=== PATIENT | female | born 1990 | race Caucasian/White ===

== ENCOUNTER 2019-05-09 22:49 | Inpatient (IN) | payer OTHER, SELFPAY ==
--- NOTE | 2019-05-10 00:21 | HPE_ITS ---
History of Present Illness Deisy is at 39 5/7 in active labor. Ctx started ~3 am - on and off over the day - more consistent and intense this evening. Initial exam here 4 cm/80% @ 10:30 pm. No ANDERSON, n/v, abd pain, ROM, visual issues. Good fmvt today. Good po intake and clear UO. labs per flow sheet: A pos, neg AB screen, rubella immune, hep B and H IV neg. Sono c/w LMP Mat surgical hx: Lap abigail 2013 Esophageal manometry 2011 Meds: Ranitidine 150mg Vit D PN vits Allerg: NKDA Husb = Reynaldo No cigs, no etoh, neg UDS First labor - ~18 hrs, post dates induction, Nitrous/Tub - 7# 13 oz boy O: Comfortable between ctx, alert Vitals per flow sheet up walking lungs - clear cv s- reg, no murmur abd - soft with firm ut during ctx - mod q 4-6 NST - 150 baseline, mod variability, no decels - CAt 1 cvx - 5/80%/-1 station, bulging bag, vtx A: Active labor - good cervical change in past ~2 hrs Maternal and wellbeing Excellent support from Reynaldo - offer tub and encourage ambulation Expect S. Generoksana [facility] Social History Smoking/Tobacco Use Status: Never Drug use: Never Meds Home Medications and Allergies Home Medications Medication Instructions Recorded Confirmed Type PNV cmb#95-ferrous fumarate-FA 1 ea PO DAILY AM 03/21/16 03/21/16 History [ Caplet] Allergies Allergy/AdvReac Type Severity Reaction Status Date / Time No Known Allergies Allergy Unverified 03/21/16 20:12
[2019-05-10] MEDS: Ibuprofen 600 MG TAB PO ×3 (08:51→21:05)
[2019-05-10] MEDS: Acetaminophen 325 MG TAB 650 MG PO ×2 (11:31→17:28)
[2019-05-11 06:45] LABS: HCT 38.3 % (36.0-46.0); HGB 12.9 g/dL (12.0-15.5); Mean Corp. HGB Concentration 33.7 g/dL (32.0-36.0); Mean Corpuscular Hemoglobin 30.8 pg (27.0-33.0); Mean Corpuscular Volume 91.4 fL (80-95); Platelet Count 244 x1000/uL (130-400); RBC 4.19 m/cumm (4.00-5.20); RBC Distribution Width 13.8 % (11.7-14.6); White Blood Cell Count 8.48 k/cumm (4.4-10.8)
--- NOTE | 2019-05-11 09:00 | HPE_ITS ---
History of Present Illness Discharge Summary Excellent pp progress - doing all self care FP needs addressed - condoms will cont PN vits and PRN H2 elaina fundus firm and 2 below umb scant lochia no pedal edema vitals are good ASS: Routine PP course S/P P: Home today and f/u in [place] 8:45 Wed Call or seek care sooner if questions or problems Héctor [facility] Social History Smoking/Tobacco Use Status: Never Drug use: Never Meds Home Medications and Allergies Home Medications Medication Instructions Recorded Confirmed Type PNV cmb#95-ferrous fumarate-FA 1 ea PO DAILY AM 03/21/16 03/21/16 History [ Caplet] ranitidine HCl 150 mg PO DAILY 05/10/19 05/10/19 History Allergies Allergy/AdvReac Type Severity Reaction Status Date / Time No Known Allergies Allergy Unverified 03/21/16 20:12 Results Labs Result diagrams: 05/11/19 06:17 Labs: Laboratory Results - last 24 hr 05/11/19 06:17 WBC 8.48 RBC 4.19 Hgb 12.9 Hct 38.3 MCV 91.4 MCH 30.8 MCHC 33.7 RDW 13.8 Plt Count 244 MPV 10.0
[2019-05-11] MEDS: Ibuprofen 600 MG TAB PO (10:49)
== END 2019-05-11 16:20 | disposition home or self-care (01) | DRG 807 ==
PROVIDERS: Admitting Provider Family Medicine; PCP Family Medicine; Visit Provider Family Medicine
DX: O69.1XX0 Labor and delivery complicated by cord around neck, with compression, not applicable or unspecified (principal); Z37.0 Single live birth; Z3A.39 39 weeks gestation of pregnancy; Z30.09 Encounter for other general counseling and advice on contraception
CPT/HCPCS: 36415; 85027; 99223; NC

== ENCOUNTER 2023-05-09 00:10 | Inpatient (IN) | payer OTHER, SELFPAY ==
[2023-05-10] VITALS (15 sets, daily range): BP systolic 112–136; BP diastolic 62–84; PULSE 75–101; RESP 16–20; TEMP 36.7–36.8; O2SAT 97–99
--- NOTE | 2023-05-10 00:11 | W.PM.OBHPL1 ---
Date of service: 05/10/23 Time of Service: 00:12 Assessment and Plan Assessment and plan (1) : Status: Acute Assessment and plan: Deisy is a 32yo at 40.0w with Rh+ RI GBS- HepC-. She has had an uncomplicated . She was seen in clinic this afternoon SVE 1-2cm, membranes stripped. She felt a gush of fluid at 2pm and was having irregular contractions. These got stronger and by 11pm, she could not talk through contractions and they were 5-15min apart. She was shivering. She had continued to leak fluid. She presented to the center and here is 4/50/-3, contractions strong and every 2 minutes. She does not want an epidural at this point and is aware of nitrous. Anticipate . Routine labor care. Qualifiers: Weeks of gestation: 40 weeks Qualified Code(s): Z3A.40 - 40 weeks gestation of OB-HPI Labor/Delivery History of Present Illness Reason for Visit: Labor Chief Complaint: Uterine Contractions; Suspected Rupture of Membranes , Associated Signs and Symptoms of Suspected ROM: grossly ruptured clear fluid. JULIA Calculator Estimated Delivery Date Method Current WG Current Estimate 05/10/23 LMP (Certain) 40w 0d History of Present Expected Delivery Route/Plan Specific Issues/Plan None Assessment: History Reviewed & Current Review of Systems All systems reviewed & are unremarkable except as noted in HPI and below PFSH All Active Problems (Updated 05/10/23 @ 00:20 by Farzad Silva) (Acute) Biliary dyskinesia (Active 10/28/12) Laparoscopic cholecystectomy/OR cholangiogram. Incidental laparoscopic appendectomy per request of patient. (Done by Dr. Enrico Rey 10-28-2012 Social History Smoking/Tobacco Use Status: Never Smoking risk assessment performed?: Yes Drug use: Never History History 6 Para 2 Hx # Term Pregnancies 2 Multiple births 0 Hx # Pregnancies 0 Ectopic pregnancies 0 AB induced 0 Hx Number of Living Children 2 AB spontaneous 3 Meds Allergies and Home Medications Allergies Allergy/AdvReac Type Severity Reaction Status Date / Time No Known Allergies Allergy Unverified 03/21/16 20:12 Home Medications Medication Instructions Recorded Confirmed Type vit no.95-ferrous 1 ea PO DAILY AM 03/21/16 03/21/16 History fumarate 28 mg-folic acid 800 mcg tablet () ranitidine HCl 150 mg tablet 150 mg PO DAILY 05/10/19 05/10/19 History Exam Physical Exam Vital signs: Pulse BP 90 129/81 05/10/23 00:01 05/10/23 00:01 Vital Signs Reviewed: Yes Constitutional Constitutional: moderate distress and average body habitus Detailed Labor and Delivery Exam Dilation: 4 Effacement (%): 50 station: -3 Cervix position: anterior Consistency: soft Camarena Score: Cervical Points Exam 0 1 2 3 Dilation Closed 1-2cm 3-4 cm 5-6cm Effacement 0-30% 40-50% 60-70% 80% Consistency Firm Medium Soft Station -3 -2 -1,0 +1,+2 Position Posterior Mid Anterior CAMARENA Score(Cervical Ripeness Score): 7 Amniotic Membrane Status: Ruptured Rupture Method: Spontaneous Amniotic Fluid: Clear Pooling: Positive Monitor Mode: External Contraction Frequency(min): 2 Contraction Intensity: Moderate Fetus A Heart Rate Baseline: 155 Monitor Accelerations: 15 X 15 Monitor Decelerations: None Variability: Moderate (6-25 BPM) Presentation: Vertex Categories: Category I Date of Membrane Rupture: 05/10/23 Time of Membrane Rupture: 14:00 HEENT Exam HEENT Exam: Normal Respiratory Exam Respiratory Exam: Normal Cardiovascular Exam Cardiovascular Exam: Normal Abdominal Exam Abdominal Exam: Normal Exam Exam: Normal Extremities Exam Extremities Exam: Normal Back/Spine/Pelvis Exam Back Exam: Normal Pelvis Adequate: Yes Skin Exam Skin Exam: Normal Neurological Exam Neurological Exam: Normal Psychiatric Exam Psychiatric Exam: Normal Results Results Group Beta Strep: Negative Blood Type: A+ Rubella Status: Immune Varicella Immunity: Not Tested Risk Assessment Risk for Shoulder Dystocia Increased Risk?: No Risk for Pre-Eclampsia Daily Dose ASA Indicated: No Risk for Post- Hemorrhage At Risk?: No Counseled re: Active Management: Yes Risks Reviewed Risks Reviewed Upon Admission: Yes
[2023-05-10 00:41] LABS: HCT 36.8 % (36.0-46.0); HGB 12.8 g/dL (11.2-15.7); MCH 30.1 pg (27.0-33.0); MCHC 34.8 % (32.0-36.0); MCV 87 fL (80-95); MPV 10.3 fL (8.0-11.0); Platelet Count 286 10^3/uL (130-400); RBC 4.25 10^6/uL (3.93-5.22); RDW 13.7 % (11.7-14.6); WBC 11.43 10^3/uL (4.4-10.8)
[2023-05-10 01:14] LABS: Source Nasal/Nares
[2023-05-10 01:50] LABS: COVID-19 PCR Negative (Negative)
[2023-05-10] MEDS: Oxytocin 10 UNITS/ML VIAL IM (02:35)
--- NOTE | 2023-05-10 02:58 | OBVDS_ITS ---
Date of service: 05/10/23 Time of Service: 02:33 OB Labor/ Delivery Information Baby A Delivery Delivery Method: Spontaneaous Presentation: Cephalic Cephalic Position: Vertex Vertex Position: Left Occipital Anterior Breech Position: N/A Cord Description-Baby A: 3 Vessels Amniotic Fluid: Clear Estimated Blood Loss: 200 Delivery Outcome: Liveborn Transferred: Remains with Mother Note: After arrival, Deisy progressed quickly from 4cm to complete and felt the urge to push. She used nitrous for pain management. She pushed effectively and quickly and delivered a vigorous baby girl in HIGINIO position over an intact perineum. Baby was immediately stimulated and moved to moms abdomen. Cord was found to be short and baby moved down on mom. Gentle traction was applied to cord and placenta with hemostat, however cord partially tore. I was able to grasp the placental edge with ring forceps and deliver complete placenta with additional traction. 10mg pitocin given IM during placental delivery. No sign ificant bleeding occurred from torn cord. 3 vessel cord, smaller placenta with more calcification than expected. Apgars of 9 and 9. No tears or repair required. Fundus was firm at umbilicus. Anticipate routine post care. Providers Doctor: Farzad Silva Air Analyst: Farzda Silva Nurse: Gudelia Clarke Nurse: Mikayla Toro Labor/Delivery Information Number of Babies in Womb: 1 Steroids Given: None Reason Steroids Not Administered: N/A Group Beta Strep: Negative Antibiotics Administered: No Rubella Status: Immune Blood Type: A+ Varicella Immunity: Not Tested Born En Route: No Maternal Complications: Abnormal Cord Length (short cord, partial tear) Shoulder Dystocia: No Stages of Labor Onset of Labor Date: 05/09/23 Onset of Labor Time: 14:20 Complete Dilatation Date: 05/10/23 Complete Dilatation Time: 02:25 Labor - Stage 1 Duration: 12 hours and 5 minutes ROM Baby A: 05/10/23 ROM Baby A: 14:00 Delivery Date-Baby A: 05/10/23 Infant Delivery Time-Baby A: 02:33 Labor Stage 2 Duration: 8 minutes Placenta Delivery Date-Baby A: 05/10/23 Placenta Delivery Time-Baby A: 02:40 Labor-Stage 3 Duration: 7 minutes Total Length of Labor-Baby A: 12 hours and 13 minutes Placenta Cultured: No Placenta Status: Delivered Baby A Gender: Female Gestational Status: Term (39-41.6 wks) Gestational Age in Weeks/Days: 40 Weeks and 0 Days Score-1 Minute Interval(Baby A) Heart Rate-1 minute: 100 BPM or Greater Respiratory Effort- 1 minute: Spontaneous/Strong Cry Muscle Tone-1 minute: Active Movement Reflex Response-1 minute: Prompt Response Color-1 minute: Bluish Hands or Feet Total Score-1 minute: 9 Score-5 Minute Interval(Baby A) Heart Rate- 5 minute: 100 BPM or Greater Respiratory Effort-5 minute: Spontaneous/Strong Cry Muscle Tone-5 minute: Active Movement Reflex Response-5 minute: Prompt Response Color-5 minute: Bluish Hands or Feet Total Score- 5 minute: 9
[2023-05-10] MEDS: Acetaminophen 325 MG TAB 650 MG PO ×4 (03:52→19:58)
[2023-05-10] MEDS: Ibuprofen 600 MG TAB PO ×3 (03:52→19:59)
[2023-05-10] MEDS: Docusate Sodium 100 MG CAP PO (19:58)
--- NOTE | 2023-05-10 20:40 | PLAC_PTH ---
PATIENT: Deisy Rodriguez LOC: OBS U#:[id number] AGE/SX: 32/F ROOM: OBS.303 RE05/09/[address]: Farzad Silva : 1990 BED: A DIS: 05/11/2023 SPEC #: [id number] RECD: 05/13/23 12:02 STATUS: YAMIL REQ #: [id number] DILSHAD: 05/10/23 20:[address]: Farzad Silva DEPT: Surgical Specimen RECD BY: Delicia Alvarez ENTERED: 05/13/23 12:03 SP TYPE: PLAC OTHR DR: Cherry Barker Tissues: 1 - PLACENTA (3RD TRIMESTER) Procedures: GROSS AND MICRO LEVEL 5 Comments: [id number]
--- NOTE | 2023-05-11 06:53 | W.PM.OBDISCH ---
Date of service: 05/11/23 Time of Service: 06:54 DS: Diagnosis Discharge Diagnosis (1) : Status: Acute Asessment and Plan: 32yo [id number] . Uncomplicated labor and delivery, rapid second stage. Her cord tore in third stage, and I removed placenta manually but my hand did not enter her uterus, so no antibiotics were given. She has done well post . Lochia normal, fundus firm. She is up and about without issue, passing sherice. eating and drinking well. Nursing is going well. No other concerns. She will follow up with us in clinic on Saturday with the baby and we will schedule her post visit then. Discharge Plan Disposition Patient Disposition: Home Condition: Good Discharge Details Reason For Visit: Labor Admit Date/Time: 05/09/23 00:10 Admit Provider: Farzad Silva Attending Provider: Farzad Silva Primary Care Provider: Cherry Barker Home Meds and New Rx's Prescriptions: No Action PNV cmb#95-ferrous fumarate-FA [] 1 EACH tablet 1 ea PO DAILY AM ranitidine HCl 150 mg Tablet 150 mg PO DAILY Hold Instructions: Pt Stopped/Never Started famotidine 20 mg tablet 20 mg PO TID Patient Comments: TAKE ONE TABLET BY MOUTH THREE TIMES DAILY NEEDED Discharge Instructions Stand Alone Forms: BC Post Vaginal Deliver Activity:: Activity as Tolerated Equipment/Supplies:: No Equipment Needed Diet:: As Tolerated Discharge Orders Discharge Orders: Discharge Order (Routine); Ordered 05/11/23 Ordered By: Farzad Silva OB:DS Summary Summary Vaginal Delivery Method: Spontaneaous Episiotomy Description: None Laceration Description: None Laceration Extension: N/A complications OB DS: none Time spent discussing smoking cessation with patient: 3 to 10 minutes Contraception Discussed Contraception Discussed: No, Pant[place] Gender-Baby A: Female weight: 2740 g Status at Discharge Functional status at discharge: independent ambulation Overall status at discharge: patient is progressing back to baseline Mental Status: mental status grossly normal Speech and Movement: speech and movement normal Mood: congruent mood Affect: normal affect Time Spent with Patient providing and/or coordinating discharge services: Less than 30 minutes Exam Physical Exam Vital signs: Temp Pulse Resp BP Pulse Ox 36.8 C 79 16 116/72 98 05/10/23 22:15 05/10/23 22:15 05/10/23 22:15 05/10/23 22:15 05/10/23 22:15 Vital Signs Reviewed: Yes Constitutional Constitutional: no acute distress HEENT Exam HEENT Exam: Normal Respiratory Exam Respiratory Exam: Normal Cardiovascular Exam Cardiovascular Exam: Normal Abdominal Exam Abdomen: Diastasis Fundal Exam Fundus: Below Umbilicus and Firm Extremities Exam Extremity Exam: Normal Back/Spine/Pelvis Exam Back Exam: Normal Skin Exam Skin Exam: Normal Neurological Exam Neurological Exam: Normal Psychiatric Exam Psychiatric Exam: Normal PFSH All Active Problems (Updated 05/10/23 @ 00:20 by Farzad Silva) (Acute) Biliary dyskinesia (Active 10/28/12) Laparoscopic cholecystectomy/OR cholangiogram. Incidental laparoscopic appendectomy per request of patient. (Done by Dr. Enrico Rey 10-28-2012 Social History Smoking/Tobacco Use Status: Never Smoking risk assessment performed?: Yes Alcohol Intake: never Drug use: Never Substance use type: does not use Housing: house Do you feel safe at home: Yes Do you feel safe in your relationship?: Yes History History 6 Para 2 Hx # Term Pregnancies 2 Multiple births 0 Hx # Pregnancies 0 Ectopic pregnancies 0 AB induced 0 Hx Number of Living Children 2 AB spontaneous 3 DS: Data Vitals/I&O Vitals and I&O: Vital Signs Temperature 36.8 C 05/10/23 22:15 Temperature Source Oral 05/10/23 22:15 Pulse 79 05/10/23 22:15 Pulse Rhythm Regular 05/10/23 20:00 Respiratory Rate 16 05/10/23 22:15 Respiratory Depth Normal 05/10/23 08:00 Blood Pressure 116/72 05/10/23 22:15 Blood Pressure Mean 86 05/10/23 22:15 Pulse Oximetry 98 05/10/23 22:15 Oxygen Delivery Method Room Air 05/10/23 00:25 Oxygen Flow Rate 0 05/10/23 00:25 Pain Level 0 05/10/23 20:59 Intake & Output 05/10/23 05/10/23 05/11/23 11:59 23:59 11:59 Output Total 900 / 900 Balance -900 / -900 Weight 81.193 kg Output: Urine 900 / 900 Other: Urine Color Yellow Pale Urine Appearance Clear Urine Odor None Voiding Methods Toilet Data Completed and Pending Pending studies at discharge: Placenta sent to pathology
[2023-05-11] MEDS: Acetaminophen 325 MG TAB 650 MG PO (07:09)
[2023-05-11] MEDS: Ibuprofen 600 MG TAB PO (07:10)
[2023-05-11 09:00] VITALS: BP 111/70; PULSE 65; RESP 20; TEMP 36.6
== END 2023-05-11 11:10 | disposition home or self-care (01) | DRG 807 ==
PROVIDERS: Admitting Provider Family Medicine; PCP Family Medicine; Visit Provider Family Medicine
DX: O69.3XX0 Labor and delivery complicated by short cord, not applicable or unspecified (principal); Z37.0 Single live birth; Z3A.40 40 weeks gestation of pregnancy; O69.89X0 Labor and delivery complicated by other cord complications, not applicable or unspecified
CPT/HCPCS: 00123; 85027; 86850; 86900; 86901; 87635; 88307; J2590

== ENCOUNTER 2025-04-23 23:22 | Inpatient (IN) | payer OTHER, SELFPAY ==
[2025-04-23 23:27] VITALS: BP 110/63; PULSE 84
[2025-04-23 23:33] VITALS: BP 110/63; PULSE 84; TEMP 36.7
[2025-04-23 23:38] VITALS: BP 110/63; PULSE 84; RESP 16; TEMP 36.7
[2025-04-24] VITALS (36 sets, daily range): BP systolic 92–117; BP diastolic 56–73; PULSE 0–111; RESP 16; TEMP 36.5–36.7; BMI 31.7
[2025-04-24] MEDS: Calcium Carbonate *TUMS* 500 MG CHEW 1000 MG PO (00:47)
--- NOTE | 2025-04-24 01:44 | W.OBNST ---
Date of service: 04/24/25 Time of Service: 01:44 NST Evaluation Reason for NST Reasons for Nonstress Test: OTHER, SEE COMMENT Reason for NST Other: labor Gestational Age Gestational Age in Weeks and Days: 39 Weeks and 0Days Test and Monitor Explained Test/Monitor Explained: Test Explained Vital Signs Blood Pressure: 110/63 Pulse: 84 Temperature: 36.7 C Weight: 83.915 kg Urine Results Urine Protein: Negative Urine Ketones: Positive Urine Glucose: Negative Urine Blood: Negative NST Information Time on Monitor: 22:55 Date off Monitor: 04/15/25 Time off Monitor: 23:30 NST Interventions: None Contraction Frequency: 3-5 NST Evaluation Patient States Movement: Present FHR Baseline: 120 Variability: Moderate 6-25 bpm Accelerations: 15x15 Decelerations: None NST Results: Reactive Note Ultrasound Done: N/A. NST Note Note: Pt presented with frequent contractions for several hours. NST Cat 1, reactive, with regular contractions. SVE 3/40/-3. After 2 hours of walking and monitoring, there was no cervical change, but contractions continue. She is going to rest now for the night and we will re evaluate in the morning. NST Reviewed and Verified by: Farzad Silva
--- NOTE | 2025-04-24 07:32 | W.PM.OBHPL1 ---
Date of service: 04/24/25 Time of Service: 07:33 Assessment and Plan Assessment and plan (1) : Status: Acute Assessment and plan: 34yo with Rh+ RI GBS-, uncomplicated . she presented last night with contractions for several hours. Overnight, contractions have not resolved, but she has made no cervical change. As a multip with 3 kids at home she prefers not to labor at home a this point. We discussed options of no interventions and allowing her to labor here, or administering a dose of miso to help augment labor. She prefers to start miso now. Will continue to monitor. Anticipate vaginal delivery. Otherwise, routine labor care. OB-HPI Labor/Delivery History of Present Illness Reason for Visit: Labor Chief Complaint: Uterine Contractions. JULIA Calculator Estimated Delivery Date Method Current WG Current Estimate 04/30/25 LMP (Certain) 39w 1d History of Present Expected Delivery Route/Plan Narrative: with Rh- RI GBS- here with prodromal labor. She has had an uncomplicated . Informed Consent Informed Consent: Augmentation of Labor Review of Systems All systems reviewed & are unremarkable except as noted in HPI and below PFSH All Active Problems (Updated 04/24/25 @ 07:43 by Farzad Silva) (Acute) Biliary dyskinesia (Active 10/28/12) Laparoscopic cholecystectomy/OR cholangiogram. Incidental laparoscopic appendectomy per request of patient. (Done by Dr. Enrico Rey 10-28-2012 Social History Smoking/Tobacco Use Status: Never Smoking risk assessment performed?: Yes Alcohol Intake: never Drug use: Never Substance use type: does not use Housing: house Do you feel safe at home: Yes Do you feel safe in your relationship?: Yes History History 6 Para 3 Hx # Term Pregnancies 3 Multiple births 0 Hx # Pregnancies 0 Ectopic pregnancies 0 AB induced 0 Hx Number of Living Children 3 AB spontaneous 3 Meds Allergies and Home Medications Allergies Allergy/AdvReac Type Severity Reaction Status Date / Time No Known Allergies Allergy Unverified 03/21/16 20:12 Home Medications Medication Instructions Recorded Confirmed Type vit no.95-ferrous 1 ea PO DAILY AM 03/21/16 04/24/25 History fumarate 28 mg-folic acid 800 mcg tablet () famotidine 20 mg tablet 20 mg PO TID 05/10/23 04/24/25 History doxylamine succinate 25 mg tablet mg 04/24/25 History (Sleep Aid (doxylamine)) Exam Physical Exam Vital signs: Temp Pulse Resp BP 36.7 C 97 H 16 102/62 04/23/25 23:38 04/24/25 07:07 04/23/25 23:38 04/24/25 07:07 Vital Signs Reviewed: Yes Detailed Labor and Delivery Exam Dilation: 3 Effacement (%): 40 station: -3 Cervix position: mid Consistency: soft Camarena Score: Cervical Points Exam 0 1 2 3 Dilation Closed 1-2cm 3-4 cm 5-6cm Effacement 0-30% 40-50% 60-70% 80% Consistency Firm Medium Soft Station -3 -2 -1,0 +1,+2 Position Posterior Mid Anterior CAMARENA Score(Cervical Ripeness Score): 6 Amniotic Membrane Status: Intact Monitor Mode: External Contraction Frequency(min): 5 Contraction Duration(sec): 60 Contraction Intensity: Mild Fetus A Heart Rate Baseline: 135 Monitor Accelerations: 15 X 15 Monitor Decelerations: None Variability: Moderate (6-25 BPM) Presentation: Cephalic Categories: Category I Assessment Note: Category 1, reactive with regular but mild contractions Respiratory Exam Respiratory Exam: Normal Cardiovascular Exam Cardiovascular Exam: Normal Exam Exam: Normal Extremities Exam Extremities Exam: Normal Neurological Exam Neurological Exam: Normal Psychiatric Exam Psychiatric Exam: Normal Results Results Group Beta Strep: Negative Blood Type: A+ Rubella Status: Immune Varicella Immunity: Not Tested Risk Assessment Risk for Shoulder Dystocia Increased Risk?: No Risk for Pre-Eclampsia Daily Dose ASA Indicated: No Yes, if 2 or more: POSITIVE FOR: Age>= 35 yrs Risk for Post- Hemorrhage At Risk?: No Counseled re: Active Management: Yes Risks Reviewed Risks Reviewed Upon Admission: Yes
[2025-04-24] MEDS: miSOPROStol 25 MCG TAB PO ×3 (08:09→17:44)
[2025-04-24 08:22] LABS: Abs Immature Grans 0.02 10^3/uL (0.0-0.06); HCT 36.2 % (36.0-46.0); HGB 12.2 g/dL (11.2-15.7); Immature Grans % 0.2 %; MCH 29.3 pg (27.0-33.0); MCHC 33.7 % (32.0-36.0); MCV 87 fL (80-95); MPV 9.5 fL (8.0-11.0); Platelet Count 236 10^3/uL (130-400); RBC 4.17 10^6/uL (3.93-5.22); RDW 14.3 % (11.7-14.6); RDW-SD 45.5 fL; WBC 9.23 10^3/uL (4.4-10.8)
--- NOTE | 2025-04-24 12:58 | W.PM.OBNL1 ---
Date of service: 04/24/25 Time of Service: 12:58 Informed Consent Informed Consent: Augmentation of Labor Pelvic Exam Dilation: 3 Effacement (%): 40 station: -3 Cervix Position: mid Consistency: soft Vaginal Exam Presentation: Cephalic Contractions Monitor Mode: External Contraction Frequency(min): 5-7 Contraction Duration(sec): 60 Intensity: Mild Fetus A Monitor: External (US) Heart Rate Baseline: 150 Presentation: Vertex Variability: Moderate (6-25 BPM) Categories: Category I FHR Rhythm: Regular Characteristics: Normal Accelerations: 15 X 15 Decelerations: None Amniotic Membrane Status: Intact Assessment Note: Category 1, reactive Assessment and Plan Assessment and plan (1) : Status: Acute Assessment and plan: Deisy has rested some, contractions remain mild with no cervical change after 1 dose of miso. We will continue q4h miso today. Either allow natural labor if it has started at that point, or will consider pitocin. She is comfortable with this plan. FHR Cat 1 and reactive. BP normal. GBS-. No other concerns. Objective Abnormal lab results 04/24/25 Range/Units 08:15 Absolute Neutrophils 7.16 H (1.2-6.7) 10^3/uL Temp Pulse Resp BP 36.5 C 90 16 106/59 L 04/24/25 12:32 04/24/25 12:32 04/23/25 23:38 04/24/25 12:32 Laboratory Results WBC 9.23 10^3/uL (4.4-10.8) 04/24/25 08:15 RBC 4.17 10^6/uL (3.93-5.22) 04/24/25 08:15 Hgb 12.2 g/dL (11.2-15.7) 04/24/25 08:15 Hct 36.2 % (36.0-46.0) 04/24/25 08:15 MCV 87 fL (80-95) 04/24/25 08:15 MCH 29.3 pg (27.0-33.0) 04/24/25 08:15 MCHC 33.7 % (32.0-36.0) 04/24/25 08:15 RDW 14.3 % (11.7-14.6) 04/24/25 08:15 Plt Count 236 10^3/uL (130-400) 04/24/25 08:15 MPV 9.5 fL (8.0-11.0) 04/24/25 08:15 Immature Gran % 0.2 % 04/24/25 08:15 Neutrophils % 77.6 % 04/24/25 08:15 Band Neutrophils % Cancelled 04/24/25 07:43 Lymphocytes % 15.5 % 04/24/25 08:15 Atypical Lymphs % Cancelled 04/24/25 07:43 Monocytes % 5.7 % 04/24/25 08:15 Eosinophils % 0.7 % 04/24/25 08:15 Basophils % 0.3 % 04/24/25 08:15 Metamyelocytes % Cancelled 04/24/25 07:43 Myelocytes % Cancelled 04/24/25 07:43 Promyelocytes % Cancelled 04/24/25 07:43 Other Cells % Cancelled 04/24/25 07:43 Nucleated RBC % 0.0 % (0.0-0.3) 04/24/25 08:15 Absolute Neutrophils 7.16 10^3/uL (1.2-6.7) H 04/24/25 08:15 Absolute Lymphocytes 1.43 10^3/uL (1.2-3.4) 04/24/25 08:15 Absolute Monocytes 0.53 10^3/uL (0.1-0.8) 04/24/25 08:15 Absolute Eosinophils 0.06 10^3/uL (0.0-0.7) 04/24/25 08:15 Absolute Basophils 0.03 10^3/uL (0.0-0.2) 04/24/25 08:15 RBC Morphology Cancelled 04/24/25 07:43 Polychromasia Cancelled 04/24/25 07:43 Hypochromasia Cancelled 04/24/25 07:43 Poikilocytosis Cancelled 04/24/25 07:43 Basophilic Stippling Cancelled 04/24/25 07:43 Anisocytosis Cancelled 04/24/25 07:43 Microcytosis Cancelled 04/24/25 07:43 Macrocytosis Cancelled 04/24/25 07:43 Spherocytes Cancelled 04/24/25 07:43 Tear Drop Cells Cancelled 04/24/25 07:43 Ovalocytes Cancelled 04/24/25 07:43 Stomatocytes Cancelled 04/24/25 07:43 Oliva-Monserrate Bodies Cancelled 04/24/25 07:43 [place] Cells/Echinocytes Cancelled 04/24/25 07:43 Acanthocytes (Spur) Cancelled 04/24/25 07:43 Schistocytes Cancelled 04/24/25 07:43 ABO/Rh A Positive 04/24/25 07:43 Antibody Screen NEGATIVE 04/24/25 07:43 Subjective Patient Reports: No new Complaints Interval history since last seen: no change in contractions, no loss of fluid Results Hemoglobin/Hematocrit: Hgb 12.2 g/dL (11.2-15.7) 04/24/25 08:15 Hct 36.2 % (36.0-46.0) 04/24/25 08:15 Abnormal Lab Findings: Abnormal Labs 04/24/25 08:15 Absolute Neutrophils 7.16 H
--- NOTE | 2025-04-24 21:40 | W.PM.OBNL1 ---
Date of service: 04/24/25 Time of Service: 21:40 Informed Consent Informed Consent: Augmentation of Labor Pelvic Exam Dilation: 3 Effacement (%): 70 station: -3 Cervix Position: mid Consistency: soft Vaginal Exam Presentation: Cephalic Contractions Monitor Mode: External Contraction Frequency(min): 3 Contraction Duration(sec): 90 Intensity: Moderate Fetus A Monitor: External (US) Heart Rate Baseline: 125 Presentation: Cephalic Variability: Moderate (6-25 BPM) Categories: Category I FHR Rhythm: Regular Characteristics: Normal Accelerations: 15 X 15 Decelerations: None Amniotic Membrane Status: Intact Assessment and Plan Assessment and plan (1) : Status: Acute Assessment and plan: Deisy has been laboring throughout the day, contractions stronger and quicker when up and walking, and slowing down when resting. SVE now is 3/70/-3 after 3 doses of miso. Some progress in terms of thinning, but no further dialation. Discussed options, and will start pitocin now. Deisy will try nitrous for pain management, but may elect an epidural if slow progress, especially with pitocin on board. FHT has been category 1 when on the monitor. Objective Abnormal lab results 04/24/25 Range/Units 08:15 Absolute Neutrophils 7.16 H (1.2-6.7) 10^3/uL Temp Pulse Resp BP 36.6 C 96 H 16 107/67 04/24/25 19:52 04/24/25 19:52 04/24/25 19:52 04/24/25 19:52 Laboratory Results WBC 9.23 10^3/uL (4.4-10.8) 04/24/25 08:15 RBC 4.17 10^6/uL (3.93-5.22) 04/24/25 08:15 Hgb 12.2 g/dL (11.2-15.7) 04/24/25 08:15 Hct 36.2 % (36.0-46.0) 04/24/25 08:15 MCV 87 fL (80-95) 04/24/25 08:15 MCH 29.3 pg (27.0-33.0) 04/24/25 08:15 MCHC 33.7 % (32.0-36.0) 04/24/25 08:15 RDW 14.3 % (11.7-14.6) 04/24/25 08:15 Plt Count 236 10^3/uL (130-400) 04/24/25 08:15 MPV 9.5 fL (8.0-11.0) 04/24/25 08:15 Immature Gran % 0.2 % 04/24/25 08:15 Neutrophils % 77.6 % 04/24/25 08:15 Band Neutrophils % Cancelled 04/24/25 07:43 Lymphocytes % 15.5 % 04/24/25 08:15 Atypical Lymphs % Cancelled 04/24/25 07:43 Monocytes % 5.7 % 04/24/25 08:15 Eosinophils % 0.7 % 04/24/25 08:15 Basophils % 0.3 % 04/24/25 08:15 Metamyelocytes % Cancelled 04/24/25 07:43 Myelocytes % Cancelled 04/24/25 07:43 Promyelocytes % Cancelled 04/24/25 07:43 Other Cells % Cancelled 04/24/25 07:43 Nucleated RBC % 0.0 % (0.0-0.3) 04/24/25 08:15 Absolute Neutrophils 7.16 10^3/uL (1.2-6.7) H 04/24/25 08:15 Absolute Lymphocytes 1.43 10^3/uL (1.2-3.4) 04/24/25 08:15 Absolute Monocytes 0.53 10^3/uL (0.1-0.8) 04/24/25 08:15 Absolute Eosinophils 0.06 10^3/uL (0.0-0.7) 04/24/25 08:15 Absolute Basophils 0.03 10^3/uL (0.0-0.2) 04/24/25 08:15 RBC Morphology Cancelled 04/24/25 07:43 Polychromasia Cancelled 04/24/25 07:43 Hypochromasia Cancelled 04/24/25 07:43 Poikilocytosis Cancelled 04/24/25 07:43 Basophilic Stippling Cancelled 04/24/25 07:43 Anisocytosis Cancelled 04/24/25 07:43 Microcytosis Cancelled 04/24/25 07:43 Macrocytosis Cancelled 04/24/25 07:43 Spherocytes Cancelled 04/24/25 07:43 Tear Drop Cells Cancelled 04/24/25 07:43 Ovalocytes Cancelled 04/24/25 07:43 Stomatocytes Cancelled 04/24/25 07:43 Oliva-[place] Bodies Cancelled 04/24/25 07:43 Terri Cells/Echinocytes Cancelled 04/24/25 07:43 Acanthocytes (Spur) Cancelled 04/24/25 07:43 Schistocytes Cancelled 04/24/25 07:43 ABO/Rh A Positive 04/24/25 07:43 Antibody Screen NEGATIVE 04/24/25 07:43 Results Hemoglobin/Hematocrit: Hgb 12.2 g/dL (11.2-15.7) 04/24/25 08:15 Hct 36.2 % (36.0-46.0) 04/24/25 08:15 Abnormal Lab Findings: Abnormal Labs 04/24/25 08:15 Absolute Neutrophils 7.16 H
[2025-04-24] MEDS: Oxytocin/Normal Saline 30 UNIT/500 ML BAG 2 UNITS IV (22:08)
[2025-04-24] MEDS: Lactated Ringers 1,000 ML 125 ML IV (22:11)
--- NOTE | 2025-04-24 23:35 | PGE_ITS ---
Date of service: 04/24/25 Time of Service: 23:36 Informed Consent Informed Consent: Augmentation of Labor Pelvic Exam Dilation: 4 Effacement (%): 70 station: -3 Cervix Position: mid Vaginal Exam Presentation: Cephalic Contractions Monitor Mode: External Contraction Frequency(min): 3 Contraction Duration(sec): 600 Intensity: Moderate/Strong Fetus A Monitor: External (US) Heart Rate Baseline: 130 Presentation: Cephalic Variability: Moderate (6-25 BPM) Categories: Category I FHR Rhythm: Regular Characteristics: Normal Accelerations: 15 X 15 Decelerations: None Amniotic Membrane Status: Intact Assessment and Plan Assessment and plan (1) : Status: Acute Assessment and plan: Deisy is in increasing pain from contractions, pitocin now at 4u. She has progressed to SVE /-3. She is requesting epidural, and I have called anesthesia. Will continue to increase pit once epidural is in place. Objective Abnormal lab results 04/24/25 Range/Units 08:15 Absolute Neutrophils 7.16 H (1.2-6.7) 10^3/uL Temp Pulse Resp BP 36.7 C 111 H 16 101/61 04/24/25 22:59 04/24/25 23:32 04/24/25 19:52 04/24/25 22:28 Laboratory Results WBC 9.23 10^3/uL (4.4-10.8) 04/24/25 08:15 RBC 4.17 10^6/uL (3.93-5.22) 04/24/25 08:15 Hgb 12.2 g/dL (11.2-15.7) 04/24/25 08:15 Hct 36.2 % (36.0-46.0) 04/24/25 08:15 MCV 87 fL (80-95) 04/24/25 08:15 MCH 29.3 pg (27.0-33.0) 04/24/25 08:15 MCHC 33.7 % (32.0-36.0) 04/24/25 08:15 RDW 14.3 % (11.7-14.6) 04/24/25 08:15 Plt Count 236 10^3/uL (130-400) 04/24/25 08:15 MPV 9.5 fL (8.0-11.0) 04/24/25 08:15 Immature Gran % 0.2 % 04/24/25 08:15 Neutrophils % 77.6 % 04/24/25 08:15 Band Neutrophils % Cancelled 04/24/25 07:43 Lymphocytes % 15.5 % 04/24/25 08:15 Atypical Lymphs % Cancelled 04/24/25 07:43 Monocytes % 5.7 % 04/24/25 08:15 Eosinophils % 0.7 % 04/24/25 08:15 Basophils % 0.3 % 04/24/25 08:15 Metamyelocytes % Cancelled 04/24/25 07:43 Myelocytes % Cancelled 04/24/25 07:43 Promyelocytes % Cancelled 04/24/25 07:43 Other Cells % Cancelled 04/24/25 07:43 Nucleated RBC % 0.0 % (0.0-0.3) 04/24/25 08:15 Absolute Neutrophils 7.16 10^3/uL (1.2-6.7) H 04/24/25 08:15 Absolute Lymphocytes 1.43 10^3/uL (1.2-3.4) 04/24/25 08:15 Absolute Monocytes 0.53 10^3/uL (0.1-0.8) 04/24/25 08:15 Absolute Eosinophils 0.06 10^3/uL (0.0-0.7) 04/24/25 08:15 Absolute Basophils 0.03 10^3/uL (0.0-0.2) 04/24/25 08:15 RBC Morphology Cancelled 04/24/25 07:43 Polychromasia Cancelled 04/24/25 07:43 Hypochromasia Cancelled 04/24/25 07:43 Poikilocytosis Cancelled 04/24/25 07:43 Basophilic Stippling Cancelled 04/24/25 07:43 Anisocytosis Cancelled 04/24/25 07:43 Microcytosis Cancelled 04/24/25 07:43 Macrocytosis Cancelled 04/24/25 07:43 Spherocytes Cancelled 04/24/25 07:43 Tear Drop Cells Cancelled 04/24/25 07:43 Ovalocytes Cancelled 04/24/25 07:43 Stomatocytes Cancelled 04/24/25 07:43 Ol[place] Bodies Cancelled 04/24/25 07:43 [place] Cells/Echinocytes Cancelled 04/24/25 07:43 Acanthocytes (Spur) Cancelled 04/24/25 07:43 Schistocytes Cancelled 04/24/25 07:43 ABO/Rh A Positive 04/24/25 07:43 Antibody Screen NEGATIVE 04/24/25 07:43 Results Hemoglobin/Hematocrit: Hgb 12.2 g/dL (11.2-15.7) 04/24/25 08:15 Hct 36.2 % (36.0-46.0) 04/24/25 08:15 Abnormal Lab Findings: Abnormal Labs 04/24/25 08:15 Absolute Neutrophils 7.16 H
--- NOTE | 2025-04-24 23:55 | ANES.PREOP_ITS ---
General Info Date of Service Date Performed: 04/25/25 Height: 5 ft 4 in Weight: 83.915 kg Body Mass Index (BMI): 31.7 Meds Allergies and Home Medications Allergies Allergy/AdvReac Type Severity Reaction Status Date / Time No Known Allergies Allergy Unverified 03/21/16 20:12 Home Medication Medication Instructions Recorded vit no.95-ferrous 1 ea PO DAILY AM 03/21/16 fumarate 28 mg-folic acid 800 mcg tablet () famotidine 20 mg tablet 20 mg PO TID 05/10/23 doxylamine succinate 25 mg tablet mg 04/24/25 (Sleep Aid (doxylamine)) Current Visit Medications: Current Medications Generic Name Dose Route Start Last Admin Trade Name Freq PRN Reason Stop Dose Admin Fentanyl/Ropivacaine 200 ml 04/24/25 23:45 Fentanyl/Ropivacaine 2 Mcg/Ml And 0.1% 200 Ml Cadd Cassette EP DIRECTED [facility] Ringer's Solution 1,000 mls @ 200 mls/hr 04/24/25 07:30 IV INFUSION IBAN Ringer's Solution 1,000 mls @ 125 mls/hr 04/24/25 21:30 04/24/25 22:11 IV 125 mls/hr INFUSION [facility] Administration Oxytocin/Sodium Chloride 30 unit in 500 mls @ 2 mls/hr 04/24/25 21:30 04/24/25 23:07 Pitocin/Normal Saline IV 4 milliunits/min INFUSION IBAN 4 mls/hr Protocol Titration 2 MILLIUNITS/MIN Ringer's Solution 500 mls @ 500 mls/hr 04/24/25 23:36 IV 04/25/25 00:35 BOLUS ONE IV Miscellaneous Supplies 1 each 04/24/25 07:30 Iv Access IV DIRECTED [facility] IV Miscellaneous Supplies 1 each 04/24/25 21:30 Iv Access IV DIRECTED [facility] Misoprostol 25 mcg 04/24/25 08:00 04/24/25 17:44 Misoprostol 25 Mcg Tab PO 25 mcg Q4H IBAN Administration Sodium Chloride 0 ml 04/24/25 07:26 Normal Saline Flush 10 Ml Syr IVP PRN PRN Sodium Chloride 0 ml 04/24/25 08:30 Normal Saline Flush 10 Ml Syr IVP BID IBAN Sodium Chloride 0 ml 04/24/25 07:26 Normal Saline 10 Ml Vial IJ DIRECTED PRN Sodium Chloride 0 ml 04/24/25 21:30 Normal Saline Flush 10 Ml Syr IVP PRN PRN Sodium Chloride 0 ml 04/25/25 08:30 Normal Saline Flush 10 Ml Syr IVP BID IBAN Sodium Chloride 0 ml 04/24/25 21:30 Normal Saline 10 Ml Vial IJ DIRECTED PRN Terbutaline Sulfate 0.25 mg 04/24/25 07:26 Terbutaline 1 Mg/Ml Vial SC PRN PRN PFSH Active Problems Active Problems: Problem Status Onset Code Acute Z34.90 Biliary dyskinesia Active 10/28/12 K82.8 Tobacco Smoking/Tobacco Use Status: Never Passive smoking exposure: No Alcohol Alcohol Intake: never Substance Use Substance use: Never Substance use type: does not use Prental History History 2 6 Para 3 Hx # Term Pregnancies 3 Multiple births 0 Hx # Pregnancies 0 Ectopic pregnancies 0 AB induced 0 Hx Number of Living Children 3 AB spontaneous 3 Vital Signs and Lab Results Vital Signs Most Recent Vital Signs in EMR: Most Recent Vital Signs Temp Pulse Resp BP 36.7 C 93 H 16 101/61 04/24/25 22:59 04/24/25 23:52 04/24/25 19:52 04/24/25 22:28 Lab Results 04/24/25 08:15 Blood Type / Crossmatch: 2 Antibody Screen NEGATIVE 04/24/25 Complete Blood Count: 2 WBC, (4.4-10.8) 9.23 10^3/uL 04/24/25, 08:15 RBC, (3.93-5.22) 4.17 10^6/uL 04/24/25, 08:15 Hgb, (11.2-15.7) 12.2 g/dL 04/24/25, 08:15 Hct, (36.0-46.0) 36.2 % 04/24/25, 08:15 Plt Count, (130-400) 236 10^3/uL 04/24/25, 08:15 Anesthesia Assessment and Plan Anesthesia History Personal History: No History of Anesthesia Complications Family History: No Family History of Anesthesia Complications Exercise Tolerance Exercise Tolerance: Metabolic Equivalents>4 Cardiac & Pulmonary Exam Cardiac Exam: Normal S1/S2 Heart Sounds Pulmonary Exam: Clear Bilateral Breath Sounds Implantable Cardiac Device Does patient have a Pacemaker or an ICD?: No Airway Exam Known Difficult Airway: No Mallampati Class: 3 Mouth Opening: Normal (> 3cm) Thyromental Distance: Greater than 3 cm Neck Range of Motion: Full ROM Neck Circumference: Normal Teeth Condition: Normal Dentition ASA Classification ASA Score: ASA 2 Emergency Case?: No NPO Status NPO Status: Full Stomach Status Status: Confirmed Anesthesia Plan Resuscitation Status: Full Code Anesthesia Technique: Epidural Anesthesia Airway Planned: Natural Airway Pain Management: Epidural Monitors Used: Standard Monitors Preoperative Comments:: 34 yo requesting labor analgesia. Has had miso, no on pitocin. Currently /-3. Sig PMHx: no major, never smoker. plt 236
[2025-04-25] VITALS (83 sets, daily range): BP systolic 87–145; BP diastolic 50–90; PULSE 54–229; RESP 16–18; TEMP 36.1–36.8; O2SAT 85–100
[2025-04-25] MEDS: FentaNYL/ROPIvacaine 2 mcg/ml and 0.1% 200 ML CADD Cassette EP (00:25)
[2025-04-25] MEDS: Lactated Ringers 1,000 ML 125 ML IV (01:12)
--- NOTE | 2025-04-25 01:17 | W.PM.OBNL1 ---
Date of service: 04/25/25 Time of Service: 01:18 Informed Consent Informed Consent: Augmentation of Labor Pelvic Exam Dilation: 6 Effacement (%): 70 station: -3 Cervix Position: mid Vaginal Exam Presentation: Cephalic Contractions Monitor Mode: External Contraction Frequency(min): 3 Contraction Duration(sec): 60 Intensity: Moderate/Strong Fetus A Monitor: External (US) Heart Rate Baseline: 130 Presentation: Cephalic Variability: Moderate (6-25 BPM) Categories: Category II FHR Rhythm: Regular Characteristics: Normal Accelerations: 15 X 15 Decelerations: Variable Recurrence: Recurrent Amniotic Membrane Status: Ruptured Rupture Method: Artifical Amniotic Fluid: Clear Amount: moderate Date of Membrane Rupture: 04/25/25 Assessment Note: suspect chord, nuchal or similar. Assessment and Plan Assessment and plan (1) : Status: Acute Assessment and plan: Deisy is now comfortable. She did become hypotensive after epidural to 87/59. She was asymptomatic but baby did show bradycardia, that recovered with fluid bolus and position change. Pitocin was stopped at the point. FHT then showed variables with each contraction to the 70s at times. After several positions, FHT was most stable in high throne. After about an hour, she was feeling more pressure and asked to be checked. SVE now 6/70/-3, making good progress. Pitcoin was restarted, now at 4 again. Recurrent variable decelerations are being monitored, and are getting deeper. I am going to notify pediatrics in the event that their support is needed at delivery. Objective Abnormal lab results 04/24/25 Range/Units 08:15 Absolute Neutrophils 7.16 H (1.2-6.7) 10^3/uL Temp Pulse Resp BP Pulse Ox 36.1 C L 85 16 108/68 97 04/25/25 01:25 EDT 04/25/25 01:55 EST 04/24/25 19:52 04/25/25 01:55 EST 04/25/25 01:19 EST Laboratory Results WBC 9.23 10^3/uL (4.4-10.8) 04/24/25 08:15 RBC 4.17 10^6/uL (3.93-5.22) 04/24/25 08:15 Hgb 12.2 g/dL (11.2-15.7) 04/24/25 08:15 Hct 36.2 % (36.0-46.0) 04/24/25 08:15 MCV 87 fL (80-95) 04/24/25 08:15 MCH 29.3 pg (27.0-33.0) 04/24/25 08:15 MCHC 33.7 % (32.0-36.0) 04/24/25 08:15 RDW 14.3 % (11.7-14.6) 04/24/25 08:15 Plt Count 236 10^3/uL (130-400) 04/24/25 08:15 MPV 9.5 fL (8.0-11.0) 04/24/25 08:15 Immature Gran % 0.2 % 04/24/25 08:15 Neutrophils % 77.6 % 04/24/25 08:15 Band Neutrophils % Cancelled 04/24/25 07:43 Lymphocytes % 15.5 % 04/24/25 08:15 Atypical Lymphs % Cancelled 04/24/25 07:43 Monocytes % 5.7 % 04/24/25 08:15 Eosinophils % 0.7 % 04/24/25 08:15 Basophils % 0.3 % 04/24/25 08:15 Metamyelocytes % Cancelled 04/24/25 07:43 Myelocytes % Cancelled 04/24/25 07:43 Promyelocytes % Cancelled 04/24/25 07:43 Other Cells % Cancelled 04/24/25 07:43 Nucleated RBC % 0.0 % (0.0-0.3) 04/24/25 08:15 Absolute Neutrophils 7.16 10^3/uL (1.2-6.7) H 04/24/25 08:15 Absolute Lymphocytes 1.43 10^3/uL (1.2-3.4) 04/24/25 08:15 Absolute Monocytes 0.53 10^3/uL (0.1-0.8) 04/24/25 08:15 Absolute Eosinophils 0.06 10^3/uL (0.0-0.7) 04/24/25 08:15 Absolute Basophils 0.03 10^3/uL (0.0-0.2) 04/24/25 08:15 RBC Morphology Cancelled 04/24/25 07:43 Polychromasia Cancelled 04/24/25 07:43 Hypochromasia Cancelled 04/24/25 07:43 Poikilocytosis Cancelled 04/24/25 07:43 Basophilic Stippling Cancelled 04/24/25 07:43 Anisocytosis Cancelled 04/24/25 07:43 Microcytosis Cancelled 04/24/25 07:43 Macrocytosis Cancelled 04/24/25 07:43 Spherocytes Cancelled 04/24/25 07:43 Tear Drop Cells Cancelled 04/24/25 07:43 Ovalocytes Cancelled 04/24/25 07:43 Stomatocytes Cancelled 04/24/25 07:43 [place] Bodies Cancelled 04/24/25 07:43 Terri Cells/Echinocytes Cancelled 04/24/25 07:43 Acanthocytes (Spur) Cancelled 04/24/25 07:43 Schistocytes Cancelled 04/24/25 07:43 ABO/Rh A Positive 04/24/25 07:43 Antibody Screen NEGATIVE 04/24/25 07:43 Subjective Interval history since last seen: Pain is now well controlled with epidural. Results Hemoglobin/Hematocrit: Hgb 12.2 g/dL (11.2-15.7) 04/24/25 08:15 Hct 36.2 % (36.0-46.0) 04/24/25 08:15 Abnormal Lab Findings: Abnormal Labs 04/24/25 08:15 Absolute Neutrophils 7.16 H
--- NOTE | 2025-04-25 01:27 | W.ANESNEU ---
Epidural/Spinal Catheter Date Performed: 04/25/25 Procedure Start: 00:15 Procedure Stop: 00:24 Requesting Provider: Farzad Silva Procedure Location: Obstetrics Reason Performed: Labor Epidural Standard Monitors Applied: Blood Pressure and SpO2 Patient Position: Sitting Sedation Given (Indicate Dose Given): No Sedation given Patient Mental Status: Awake Sterility: Hand Hygiene, Surgical Cap, Surgical Mask, Sterile Gloves and Sterile Drape/Sheet Procedure Location: L3-L4 Interspace Epidural Needle: Tuohy 17 Guage Needle Length: 3.5 Inch Needle Approach: Midline Epidural Procedure: REHANA to Saline Used Catheter Placed?: Catheter Placed (19 ga flex tip plus) Test Dose (Indicate Dose Given): 3ml 1.5% Lidocaine with 1:200K Epinephrine Given and Negative Test Dose Loss of Resistance Depth (cm): 5 Catheter depth at skin (cm): 10 Dressing: Sorbaview Dressing Placed, Mastisol Used and Dressing reinforced with Tape Epidural Provider Bolus (Indicate Dose Given): Total Ropivacaine 0.1% with Fentanyl 2mcg/ml Given from pump. (ml) Dose:: 7 mL Additives (Indicate Dose Given ): None Infusion Medication: Medication Infusion Began Medication Infusion: Ropivacaine 0.1% with Fentanyl 2mcg/ml Maintenance Infusion Rate (ml/hour): 10 PCEA Bolus Dose (ml): 5 Block Level: N/A Paresthesia: None Ultrasound: Used to mauri site Number of Attempts (See previous attempts in note section): 1 Procedure Tolerated: No Complications Procedure Outcome: Successful Procedure Comment:: Good effect, slightly more dense on the right, but close to equal. Educated on PCEA, PRN orders. Performed By: Ankur Tovar
--- NOTE | 2025-04-25 02:53 | OBVDS_ITS ---
Date of service: 04/25/25 Time of Service: 02:39 OB Labor/ Delivery Information Baby A Delivery Delivery Method: Spontaneaous Presentation: Cephalic Cephalic Position: Vertex Vertex Position: Left Occipital Anterior Breech Position: N/A Cord Description-Baby A: 3 Vessels and Nuchal Cord (loose nuchal x1 delivered through) Amniotic Fluid: Clear Estimated Blood Loss: 50 Delivery Outcome: Liveborn Transferred: Remains with Mother Providers Doctor: Farzad Silva Nurse: Madeleine Cruz Nurse: Radha Emerson Other: juan carlos, Labor/Delivery Information Number of Babies in Womb: 1 Steroids Given: None Reason Steroids Not Administered: N/A Group Beta Strep: Negative Antibiotics Administered: No Rubella Status: Immune Blood Type: A+ Varicella Immunity: Not Tested Shoulder Dystocia: No Stages of Labor Onset of Labor Date: 04/23/25 Onset of Labor Time: 15:00 Complete Dilatation Date: 04/25/25 Complete Dilatation Time: 02:33 Labor - Stage 1 Duration: 36 hours and 33 minutes ROM Baby A: 04/25/25 ROM Baby A: 01:58 ROM Total Time- Baby A: [id number] Infant Delivery Date-Baby A: 04/25/25 Delivery Time-Baby A: 02:39 Labor Stage 2 Duration: 6 minutes Placenta Delivery Date-Baby A: 04/25/25 Placenta Delivery Time-Baby A: 02:43 Labor-Stage 3 Duration: 4 minutes Total Length of Labor-Baby A: 36 hours and 39 minutes Placenta Status: Delivered Baby A Infant Gender: Female Gestational Status: Term (39-41.6 wks) Gestational Age in Weeks/Days: 39 Weeks and 2 Days Length-Baby A: 46.99 cm Score-1 Minute Interval(Baby A) Heart Rate-1 minute: 100 BPM or Greater Respiratory Effort- 1 minute: Spontaneous/Strong Cry Muscle Tone-1 minute: Active Movement Reflex Response-1 minute: Prompt Response Color-1 minute: Bluish Hands or Feet Score-5 Minute Interval(Baby A) Heart Rate- 5 minute: 100 BPM or Greater Respiratory Effort-5 minute: Spontaneous/Strong Cry Muscle Tone-5 minute: Active Movement Reflex Response-5 minute: Prompt Response Color-5 minute: Bluish Hands or Feet Note: 34yo [id number] sp after complicated only by AMA, and baby with growth scan showing 11% symmetric. Labor was prolonged requiring miso x3 and pitocin. Category 2 strip during active labor with recurrent varible decels to 60s over time. Didn't respond well to position changes, fluid bolus. Pit was stopped, restarted, and then stopped again. Both pediatrics and the surgical team had been alerted and called in in the event that ressusitation or delivery became necessary based on the strip. She did progress to complete and was able to effectively push to deliver a vigorous female in HIGINIO position. Apgars of 9 and 9 without issue. Baby was able to be placed immediately on [facility] [place]. After the cord had stopped pulsing it was clamped and cut. Placenta delivered spontaneously. No lacerations, minimal blood loss.
[2025-04-25] MEDS: Ibuprofen 600 MG TAB PO ×3 (04:13→17:29)
[2025-04-25 06:39] LABS: Abs Immature Grans 0.06 10^3/uL (0.0-0.06); HCT 36.3 % (36.0-46.0); HGB 12.2 g/dL (11.2-15.7); Immature Grans % 0.4 %; MCH 29.1 pg (27.0-33.0); MCHC 33.6 % (32.0-36.0); MCV 87 fL (80-95); MPV 9.7 fL (8.0-11.0); Platelet Count 255 10^3/uL (130-400); RBC 4.19 10^6/uL (3.93-5.22); RDW 14.3 % (11.7-14.6); RDW-SD 45.0 fL; WBC 16.72 10^3/uL (4.4-10.8)
--- NOTE | 2025-04-25 06:47 | W.OBCONSULT ---
Date of service: 04/25/25 Time of Service: 02:04 History of Present Illness History of Present Illness Chief Complaint: Category 2 tracing Narrative: Made aware of patient having variable decelerations. This started around the time of epidural placement with an episode of hypotension. She continued to have persistent variable decelerations that were in the early position. She has made cervical change and more recently is 8 cm. She was having recurrent deep variable decelerations with return to baseline. She had position change, IV fluids, scalp blade was placed by her attending physician. She is now knee-chest with a heart rate tracing that has a baseline of 120, moderate variability, resolution of the decelerations. In light of the condition of the baby and the variable decelerations, breaking machine operator was notified and present. OR crew notified to be present in case of need of operative delivery. The risk, benefits, and alternatives of surgical delivery were explained to the patient. She understands the risk of infection, bleeding, injury to surrounding organs. She also understands that if warranted, she may need general anesthesia. All of her questions were answered. At this point, with intrauterine resuscitation baby looks well. Will proceed with labor. Management per family practice. Consults Consult date: 04/25/25 Requesting physician: Farzad Silva [facility] All Active Problems (Updated 04/24/25 @ 07:43 by Farzad Silva) (Acute) Biliary dyskinesia (Active 10/28/12) Laparoscopic cholecystectomy/OR cholangiogram. Incidental laparoscopic appendectomy per request of patient. (Done by Dr. Enrico Rey 10-28-2012 Social History Smoking/Tobacco Use Status: Never Smoking risk assessment performed?: Yes Alcohol Intake: never Drug use: Never Substance use type: does not use Housing: house Do you feel safe at home: Yes Do you feel safe in your relationship?: Yes History History 6 Para 3 Hx # Term Pregnancies 3 Multiple births 0 Hx # Pregnancies 0 Ectopic pregnancies 0 AB induced 0 Hx Number of Living Children 3 AB spontaneous 3 Results Last Vital Signs Temp 98.2 F 04/25/25 06:00 Pulse 82 04/25/25 06:00 Resp 16 04/25/25 04:00 BP 107/68 04/25/25 06:00 Pulse Ox 98 04/25/25 02:27 Labs 04/25/25 06:02 Labs: Laboratory Results - last 24 hr 04/24/25 04/24/25 04/25/25 07:43 08:15 06:02 WBC Cancelled 9.23 16.72 H RBC Cancelled 4.17 4.19 Hgb Cancelled 12.2 12.2 Hct Cancelled 36.2 36.3 MCV Cancelled 87 87 MCH Cancelled 29.3 29.1 MCHC Cancelled 33.7 33.6 RDW Cancelled 14.3 14.3 Plt Count Cancelled 236 255 MPV Cancelled 9.5 9.7 Immature Gran % Cancelled 0.2 0.4 Neutrophils % Cancelled 77.6 86.6 Band Neutrophils % Cancelled Lymphocytes % Cancelled 15.5 6.9 Atypical Lymphs % Cancelled Monocytes % Cancelled 5.7 5.7 Eosinophils % Cancelled 0.7 0.2 Basophils % Cancelled 0.3 0.2 Metamyelocytes % Cancelled Myelocytes % Cancelled Promyelocytes % Cancelled Other Cells % Cancelled Nucleated RBC % Cancelled 0.0 0.0 Absolute Neutrophils Cancelled 7.16 H 14.48 H Absolute Lymphocytes Cancelled 1.43 1.15 L Absolute Monocytes Cancelled 0.53 0.95 H Absolute Eosinophils Cancelled 0.06 0.03 Absolute Basophils Cancelled 0.03 0.03 RBC Morphology Cancelled Polychromasia Cancelled Hypochromasia Cancelled Poikilocytosis Cancelled Basophilic Stippling Cancelled Anisocytosis Cancelled Microcytosis Cancelled Macrocytosis Cancelled Spherocytes Cancelled Tear Drop Cells Cancelled Ovalocytes Cancelled Stomatocytes Cancelled Ol[place] Bodies Cancelled [place] Cells/Echinocytes Cancelled Acanthocytes (Spur) Cancelled Schistocytes Cancelled ABO/Rh A Positive Antibody Screen NEGATIVE
--- NOTE | 2025-04-25 13:04 | W.ANESPOSTOP ---
Postoperative Evaluation Date, Time and Location Date Performed: 04/25/25 Time Performed: 13:04 Patient Location: Obstetrics Vital Signs Most Recent Imported Vital Signs: Most Recent Vital Signs Temp Pulse Resp BP Pulse Ox 36.4 C L 65 16 98/65 L 98 04/25/25 07:44 04/25/25 07:44 04/25/25 07:44 04/25/25 07:44 04/25/25 02:27 Pain Score Most Recent Pain Score: Most Recent Pain Score Pain Level 4 04/25/25 10:10 Assessment Mental Status: Awake (Alert & Oriented to Patient Baseline) Airway and Respiratory Function: Patent airway with normal (patient baseline) respiratory exam Cardiovascular Function: Hemodynamically Stable Hydration Status: Adequately Hydrated Nausea & Vomiting: No Nausea or Vomiting Pain: Pain is tolerable per patient Peripheral Nerve Block: Patient did not receive a nerve block Postoperative Comments:: Sleeping. RN's and SO deny issues. Has been up and walking around.
[2025-04-25] MEDS: Acetaminophen 325 MG TAB 650 MG PO ×2 (13:20→20:07)
[2025-04-26] MEDS: Acetaminophen 325 MG TAB 650 MG PO
[2025-04-26] MEDS: Ibuprofen 600 MG TAB PO
--- NOTE | 2025-04-26 07:22 | W.PM.OBDISCH ---
Date of service: 04/26/25 Time of Service: 07:22 DS: Diagnosis Discharge Diagnosis (1) : Status: Acute Asessment and Plan: 34 year old now , >24 hours following after labor with pitocin augmentation. GBS neg, Rh positive, AMA, otherwise uncomplicated . Labor complicated by recurrent Cat II tracings, but ultimately uncomplicated delivery with minimal blood loss. Mom and recovering well; going well, and Deisy ambulating without difficulty, pain well controlled, minimal lochia. Desires discharge to home today after is >24 hours. - Discharge to home with routine follow up, LR. Will plan on 2 week and 6 week PP follow up. - continue PNV while - acetaminophen and ibuprofen PRN for pain - Patient has breast pump at home to use if desired - Contraception: natural family planning Discharge Plan Disposition Patient Disposition: Home Condition: Good Discharge Details Reason For Visit: Labor Admit Date/Time: 04/23/25 23:22 Admit Provider: Farzad Silva Attending Provider: Farzad Silva Primary Care Provider: Cherry Barker Hospital Course Hospital Course: 34 year old now who delivered via following labor with pitocin augmentation. GBS neg, Rh positive, AMA, otherwise uncomplicated . Labor complicated by recurrent Cat II tracings, but ultimately uncomplicated delivery with minimal blood loss. Mom and recovered well. Exclusive . Discharged to home at >24 hours following delivery after uneventful course. Home Meds and New Rx's Prescriptions: Continued famotidine 20 mg tablet 20 mg PO TID Patient Comments: TAKE ONE TABLET BY MOUTH THREE TIMES DAILY NEEDED Sleep Aid (doxylamine) 25 mg tablet Discontinued PNV no.95-ferrous fumarate-FA [] 1 EACH tablet 1 ea PO DAILY AM Discharge Instructions Stand Alone Forms: Portal Information Activity:: Activity as Tolerated Equipment/Supplies:: No Equipment Needed Diet:: Normal Diet Discharge Orders Discharge Orders: Discharge Order (Routine); Ordered 04/26/25 Ordered By: Lo Cano OB:DS Summary Summary Vaginal Delivery Method: Spontaneaous Episiotomy Description: None Laceration Description: None Contraception Discussed Contraception Discussed: Yes, Gender-Baby A: Female Status at Discharge Functional status at discharge: independent ambulation Overall status at discharge: patient is progressing back to baseline Mental Status: mental status grossly normal Speech and Movement: speech and movement normal Mood: congruent mood Affect: normal affect Exam Physical Exam Vital signs: Temp Pulse Resp BP Pulse Ox 36.8 C 88 18 112/69 98 04/25/25 23:00 04/25/25 23:00 04/25/25 23:00 04/25/25 23:00 04/25/25 02:27 Vital Signs Reviewed: Yes Constitutional Constitutional: no acute distress HEENT Exam HEENT Exam: Normal Neck Exam Neck Exam: Normal Respiratory Exam Respiratory Exam: Normal Cardiovascular Exam Cardiovascular Exam: Normal Abdominal Exam Comments: Soft. Normoactive bowel sounds. Fundus firm, below umbilicus. Appropriately tender. Extremities Exam Extremity Exam: Normal Comment: WWP, no calf tenderness Skin Exam Skin Exam: Normal Neurological Exam Neurological Exam: Normal PFSH All Active Problems (Updated 04/24/25 @ 07:43 by Farzad Silva) (Acute) Biliary dyskinesia (Active 10/28/12) Laparoscopic cholecystectomy/OR cholangiogram. Incidental laparoscopic appendectomy per request of patient. (Done by Dr. Enrico Rey 10-28-2012 Social History Smoking/Tobacco Use Status: Never Smoking risk assessment performed?: Yes Alcohol Intake: never Drug use: Never Substance use type: does not use Housing: house Do you feel safe at home: Yes Do you feel safe in your relationship?: Yes History History 6 Para 3 Hx # Term Pregnancies 3 Multiple births 0 Hx # Pregnancies 0 Ectopic pregnancies 0 AB induced 0 Hx Number of Living Children 3 AB spontaneous 3 DS: Data Vitals/I&O Vitals and I&O: Vital Signs Temperature 36.8 C 04/25/25 23:00 Temperature 36.7 C 04/24/25 01:46 Temperature Source Oral 04/25/25 23:00 Pulse 88 04/25/25 23:00 Pulse 84 04/24/25 01:46 Pulse Rhythm Regular 04/25/25 22:59 Respiratory Rate 18 04/25/25 23:00 Respiratory Depth Normal 04/25/25 22:59 Blood Pressure 112/69 04/25/25 23:00 Blood Pressure 110/63 04/24/25 01:46 Blood Pressure Mean 83 04/25/25 23:00 Pulse Oximetry 98 11/02/25 02:27 Oxygen Delivery Method Room Air 04/23/25 23:38 Oxygen Flow Rate 0 04/23/25 23:38 Pain Level 4 04/25/25 10:10 Comment Pts rang stating pt was dizzy. Pt stated she felt okay but probably needed to eat and drink. Agreeable to VS and analgesia at this time. Pt steady and able to ambulate independently. 04/25/25 13:22 Intake & Output 04/25/25 04/25/25 04/26/25 10:59 23:59 11:59 Intake Total 522.350 / 522.350 Output Total 2000 / 2600 600 / 2600 Balance -1477.650 / -2077.650 -600 / -2077.650 Intake: IV 522.350 / 522.350 Output: Urine 1800 / 2400 600 / 2400 Blood 200 / 200 Other: Urine Color Pale Pale Yellow Yellow Data Completed and Pending Pending Labs at Discharge: 04/24/25 04/24/25 04/25/25 07:43 08:15 06:02 WBC Cancelled 9.23 16.72 H RBC Cancelled 4.17 4.19 Hgb Cancelled 12.2 12.2 Hct Cancelled 36.2 36.3 MCV Cancelled 87 87 MCH Cancelled 29.3 29.1 MCHC Cancelled 33.7 33.6 RDW Cancelled 14.3 14.3 Plt Count Cancelled 236 255 MPV Cancelled 9.5 9.7 Immature Gran % Cancelled 0.2 0.4 Neutrophils % Cancelled 77.6 86.6 Band Neutrophils % Cancelled Lymphocytes % Cancelled 15.5 6.9 Atypical Lymphs % Cancelled Monocytes % Cancelled 5.7 5.7 Eosinophils % Cancelled 0.7 0.2 Basophils % Cancelled 0.3 0.2 Metamyelocytes % Cancelled Myelocytes % Cancelled Promyelocytes % Cancelled Other Cells % Cancelled Nucleated RBC % Cancelled 0.0 0.0 Absolute Neutrophils Cancelled 7.16 H 14.48 H Absolute Lymphocytes Cancelled 1.43 1.15 L Absolute Monocytes Cancelled 0.53 0.95 H Absolute Eosinophils Cancelled 0.06 0.03 Absolute Basophils Cancelled 0.03 0.03 RBC Morphology Cancelled Polychromasia Cancelled Hypochromasia Cancelled Poikilocytosis Cancelled Basophilic Stippling Cancelled Anisocytosis Cancelled Microcytosis Cancelled Macrocytosis Cancelled Spherocytes Cancelled Tear Drop Cells Cancelled Ovalocytes Cancelled Stomatocytes Cancelled [place] Bodies Cancelled Terri Cells/Echinocytes Cancelled Acanthocytes (Sp[place]) Cancelled Schistocytes Cancelled ABO/Rh A Positive Antibody Screen NEGATIVE
[2025-04-26 08:47] VITALS: BP 100/58; PULSE 77; RESP 16; TEMP 36.5; O2SAT 99
== END 2025-04-26 09:21 | disposition home or self-care (01) | DRG 807 ==
PROVIDERS: Admitting Provider Family Medicine; PCP Family Medicine; Visit Provider Family Medicine
DX: O69.81X0 Labor and delivery complicated by cord around neck, without compression, not applicable or unspecified (principal); Z37.0 Single live birth; Z3A.39 39 weeks gestation of pregnancy; O76 Abnormality in fetal heart rate and rhythm complicating labor and delivery
CPT/HCPCS: 00123; 36415; 86850; 86900; 86901; 85025; J2371; J2401; J2405; J3490